=== PATIENT | female | born 2000 | race Caucasian/White ===

== ENCOUNTER 2024-07-17 11:27 | Outpatient (AMB) | payer OTHER, MEDICAID, SELFPAY ==
--- NOTE | 2024-07-17 11:35 | A.OFFPC_ITS ---
Vital Signs 07/17/24 11:40 Height 5 ft 3.15 in Weight 316 lb BMI 55.7 BP 104/72 Blood Pressure Location Lt brachial Position Sitting Respiration 16 Pulse 84 Pulse Source Pulse Oximeter Pulse Oximetry (%) 97 Oxygen Delivery Method Room Air Intake Visit Reasons: Est. Care Intake Note: New patient visit Electrical Design Engineer Required: No Allergies No Known Allergies Allergy (Verified 07/17/24 11:38) Medication List - Last Reconciled 07/17/24 by Maggie Vasques PA-C No Known Home Meds Tobacco use date assessed: 07/17/24 Dental Screening Dental Screen Date: 07/17/24 Did you have a dental visit in the last 12 months?: Yes Did you have a dental problem in the last 6 months where you did not have access to dental care?: No Was dental information given to patient?: Patient has dentist HPI Est. Care HPI Details Patient is a 24-year-old female who presents today to establish care. She denies any acute concerns today. Pysch: She states that she has a history of anxiety and depression that waxes and wanes but is overall controlled with coping mechanisms in a good support system. SEROLOGIST: follows with [facility] Social History Housing: House (With mother) Patient Tobacco Use Status: Never used Tobacco e-Cigarette/Vaping Use: Never Used Second Hand Smoke Exposure: No service: No Current occupational status: employed Current occupation: Kitchen at [employer] Current occupational exposures/hazards: Yes (fire, ovens) Cognitive needs: No Hearing needs: No Vision needs: No Questionnaire PHQ-9 Over the last 2 weeks, how often have you been bothered by any of the following problems? 1. Little interest or pleasure in doing things: not at all 2. Feeling down, depressed, or hopeless: several days 3. Trouble falling or staying asleep, or sleeping too much: several days 4. Feeling tired or having little energy: several days 5. Poor appetite or overeating: not at all 6. Feeling bad about yourself - or that you are a failure or have let yourself or your family down: not at all 7. Trouble concentrating on things, such as reading the newspaper or watching television: several days 8. Moving or speaking so slowly that other people could have noticed. Or the opposite - being so fidgety or restless that you have been moving around a lot more than usual: several days 9. Thoughts that you would be better off or of hurting yourself in some way: not at all Total score: 5 Depression Screening Interpretation: Positive Depression Screening Follow-up: Existing condition and Declines treatment Depression Screening Done: Yes 84114 - PHQ-9 Billing: Yes Source: Developed by Drs. Tarun Bragg, Kylee Chowdhury, Chente Gagnon and colleagues, with an educational alan from [employer]. Thrive Questionnaire Date Thrive assessed: 07/16/24 I am a: Patient What is your living situation today?: I have a steady place to live Within the past 12 months, did the food you bought not last and you didn't have the money to get more?: Sometimes True Within the past 12 months, did you worry whether your food would run out before you got money to buy more?: Sometimes True Do you have trouble paying for medicines?: No Do you have trouble getting transportation to medical appointments?: No Do you have trouble paying your heating and electricity bill?: No Do you have trouble taking care of your child, family member or friend?: No Do you have trouble with day-to-day activities such as bathing, preparing meals, shopping, managing finances, etc.?: No Are you currently unemployed and looking for a job?: No Are you interested in more education?: Yes Please select the resources that you would like help with: None Currently or been in a relationship where the following occur: No concerns reported THRIVE Score: 2 AUDIT C Alcohol Use Questionnaire (AUDIT-C) 1. How often do you have a drink containing alcohol?: Never 2. How many drinks containing alcohol do you have on a typical day when you are drinking?: 1 or 2 3. How often do you have six or more drinks on one occasion?: Never Total Score: 0 DONALDO-7 AMB Questionnaire DONALDO-7 Date DONALDO - 7 assessed: 07/17/24 Feeling nervous, anxious, or on edge: 1 = Several days Not being able to stop or control worryin = Several days Worrying too much about different things: 1 = Several days Trouble relaxin = Several days Being so restless that it is hard to sit still: 1 = Several days Becoming easily annoyed or irritable: 1 = Several days Feeling afraid as if something awful might happen: 1 = Several days Total DONALDO-7 score (0-4 normal; 5-9 mild; 10-14 moderate; 15-21 severe): 7 Source: Developed by Drs. Tarun Bragg, Kylee Chowdhury, Chente Gagnon and colleagues, with an educational alan from [employer]. DONALDO-7 Assessment Billing DONALDO-7 Assessment Tool: DONALDO-7 Assessment 58044 Physical exam (Primary Care) Vital Signs: Last Vital Signs Pulse 84 07/17/24 11:40 Resp 16 07/17/24 11:40 BP 104/72 07/17/24 11:40 Pulse Ox 97 07/17/24 11:40 Oxygen Delivery Method Room Air 07/17/24 11:40 BMI result Body Mass Index 55.7 Tobacco/Smoking Status: Tobacco use Status Tobacco use date assessed 07/17/24 07/17/24 11:40 Patient Tobacco Use Status Never used Tobacco 07/17/24 11:40 e-Cigarette/Vaping Use Never Used 07/17/24 11:40 PHQ-9: PHQ-9 Score PHQ-9: Total score 5 07/17/24 11:40 Depression Screening Interpretation: Positive Depression Screening Follow-up: Existing condition and Declines treatment Thrive Assessment: Date of Thrive Assessment Date Thrive assessed 07/16/24 07/17/24 11:36 Currently or been in a relationship where the following occur: No concerns reported Const Orientation/consciousness: patient oriented x3 HENMT Ears: hearing grossly normal bilaterally Neck Thyroid: Thyroid normal Lymphatic: no lymphadenopathy noted Resp Auscultation: clear to auscultation bilaterally Cardio Rate: regular rate Rhythm: regular rhythm Heart sounds: S1 normal heart sound present and S2 normal heart sound present GI Inspection: Yes normal to inspection Palpation (GI): Soft to palpation and Other GI palpation findings present (nontender, no cva tenderness) Auscultation: normoactive bowel sounds Rectal Exam - Female: deferred Skin General skin exam: no rashes or lesions noted Neuro General: patient oriented x3, gait normal and no focal motor deficits Coding Level of Care Code New Pt Level 3 (60270) Complex EM visit Add On G2211 Diagnoses Anxiety with depression F41.8 Vitamin D deficiency E55.9 Additional Codes DONALDO-7 Assessment Billing - DONALDO-7 Assessment Tool: DONALDO-7 Assessment 94099 ([id number]) PHQ-9 - 84571 - PHQ-9 Billing: Yes ([id number]) Assessment & Plan Assessment & Plan (1) Anxiety with depression: Code(s): F41.8 - Other specified anxiety disorders Category: Medical Plan: Well-controlled (2) Vitamin D deficiency: Code(s): E55.9 - Vitamin D deficiency, unspecified Category: Medical Plan: Labs ordered. We will follow up pending test results. Orders: Orders Complete Blood Count Auto Diff Today E55.9 - Vitamin D deficiency, unspecified, F41.8 - Other specified anxiety disorders, Z00.00 - Encounter for general adult medical examination without abnormal findings Comprehensive [place]. Panel Fast Today E55.9 - Vitamin D deficiency, unspecified, F41.8 - Other specified anxiety disorders, Z00.00 - Encounter for general adult medical examination without abnormal findings TSH reflex Free T4 Today E55.9 - Vitamin D deficiency, unspecified, F41.8 - Other specified anxiety disorders, Z00.00 - Encounter for general adult medical examination without abnormal findings UA CC w/rflx Micro + Cult Today E55.9 - Vitamin D deficiency, unspecified, F41.8 - Other specified anxiety disorders, Z00.00 - Encounter for general adult medical examination without abnormal findings, Z13.220 - Encounter for screening for lipoid disorders IRON PROFILE Today E55.9 - Vitamin D deficiency, unspecified, F41.8 - Other specified anxiety disorders, Z00.00 - Encounter for general adult medical examination without abnormal findings Vitamin D 25-OH Total Today E55.9 - Vitamin D deficiency, unspecified, F41.8 - Other specified anxiety disorders, Z00.00 - Encounter for general adult medical examination without abnormal findings Hemoglobin A1c Today E55.9 - Vitamin D deficiency, unspecified, F41.8 - Other specified anxiety disorders, R73.01 - Impaired fasting glucose, Z00.00 - Encounter for general adult medical examination without abnormal findings Lipid Panel Today E55.9 - Vitamin D deficiency, unspecified, F41.8 - Other specified anxiety disorders, Z00.00 - Encounter for general adult medical examination without abnormal findings Vitamin B12 and Folate Today E55.9 - Vitamin D deficiency, unspecified, F41.8 - Other specified anxiety disorders, Z00.00 - Encounter for general adult medical examination without abnormal findings Magnesium Today E55.9 - Vitamin D deficiency, unspecified, F41.8 - Other specified anxiety disorders, Z00.00 - Encounter for general adult medical examination without abnormal findings
[2024-07-17 11:40] VITALS: BP 104/72; PULSE 84; RESP 16; O2SAT 97; BMI 55.7
--- OUTSIDE RECORDS SUMMARY | 2024-07-17 14:18 | XMS_ITS | Encounter Summary ---
Author Organization [facility] Address [address] [place] [address] Phone Care Team Providers Care Data Control Clerk Supervisor Name Role Phone Alistair Singh MD Primary Care Provider [phone] Encounter Details Date Type Department Care Team ([facility] st Contact Info) Description 11/16/2016 Conversion Encounter [facility] [address] [place] [address] Social History Tobacco Use Types Packs/Day Years Used Date Smoking Tobacco: Never Comments:Never smoker Comments Unknown Sex and Gender Information Value Date Recorded Sex Assigned at Female 02/24/2019 10:00 AM EST Legal Sex Female 5:10 PM EDT Gender Identity Female 02/24/2019 10:00 AM EST Sexual Orientation Straight 02/24/2019 10 :00 AM EST documented as of this encounter Plan of Treatment Not on file documented as of this encounter Visit Diagnoses Not on filedocumented in this encounter Care Teams Data Control Clerk Supervisor Relationship Specialty Start Date End Date Alistair Singh MD [address] [place] [address] PCP - General 11/10/16 07/18/22 documented as of this encounter
--- OUTSIDE RECORDS SUMMARY | 2024-07-17 14:18 | XMS_ITS | Encounter Summary ---
Author Organization [facility] Address [address] [place] [address] Phone Care Team Providers Care Abseiling Instructor Name Role Phone Alistair Singh MD Primary Care Provider [phone] Encounter Details Date Type Department Care Team (Late st Contact Info) Description 07/27/2014 Documentation [facility] [place] [address] [place], [place] [id number] Family Medicine, Physician [address] [place], [place] [id number] Social History Tobacco Use Types Packs/Day Years Used Date Smoking Tobacco: Never Assessed Comments Unknown Sex and Gender Information Value [...] on filedocumented in this encounter Care Teams Abseiling Instructor Relationship Specialty Start Date End Date Alistair Singh MD [address] [place] [address] [place] [address] PCP - General 11/10/16 07/18/22 documented as of this encounter
--- OUTSIDE RECORDS SUMMARY | 2024-07-17 14:18 | XMS_ITS | Clinical Summary ---
Author Organization [facility] Address [address] [place] [address] Phone Care Team Providers Care Tool Room Supervisor Name Role Phone Unavailable Primary Care Provider Unavailabl e Allergies Active Allergy Reactions Criticality Noted Date Comments Latex Rash Medium 01/28/2021 Per pt. Tomato Rash High 01/28/2021 Per pt. Medications D3 Super Strength 50 MCG (1999 UT) capsule Take 1 capsule by mouth once daily. 08/14/2020 Active meloxicam 7.5 MG tablet Take 7.5 mg by mouth 2 (two) times a day as needed. for pain 01/17/2021 Active Active Problems Problem Noted Date Diagnosed Date Current moderate episode of major depressive disorder without prior episode 04/01/2020 Anxiety disorder 04/01/2020 Developmental delay 11/16/2015 Obesity, morbid (more than 1 00 lbs over ideal weight or BMI > 40) 10/14/2009 Immunizations Immunization Administration Dates Next Due DTaP 5 07/22/2003, 3,1999,07/19,1999 HPV, Quadrivalent 12/05/2011,03/14/2011,11/01/19 11 Hep A, ped/adol 11/10/2013,10/31/2010 Hep B, ped/adol 1999,1999,1999 Hib (HbOC) 08/14/2000, 0,1999,05/10 IPV 04/21/2003, 0,1999,06/15 Influenza, injectable, quadrivalent 01/03/2016 Influenza, injectable, quadr ivalent, preservative free 01/28/2021,03/09/2020,02/24/2019,02/14 Influenza, intranasal, trivalent 12/05/2011,03/02 MMR 04/21/2003,04/25/2000 Meningococcal Conj (Menactra) MCV4P 11/16/2015,0 10/31/2010 Td (adult) (Tenivac), 5 Lf t etanus toxoid, PF, adsorbed 01/03/2016 Tdap 10/31/2010 Varicella 10/28/2007,04/25/2000 Family History Medical History Relation Name Comments ADD / ADHD Brother 1 nils Constipation Brother 1 nils Other Brother 1 nils Autism Brother 2 jose alberto Arthritis Father nils Diabetes Father nils Achalasia Mother dex Obesity Mother dex Thyroid disease Mother dex ADD / ADHD Other Asthma Other Breast cancer Other Diabetes Other Migraines Other Obesity Other Relation Name Status Comments Brother 1 nils Alive Brother: leucom alasia , hyperanemia , gastrochisis Brother 2 jose alberto Alive Father nils Alive Father: Alive a nd well Mother dex Alive Mother: analasi a Other Family history of Diabetes mellitus, Family history of Autism, Family history of Cancer, breast, Family history of ADD/ADHD, Family history of Asthma, Family history of Migraines, Family history of *Dental caries, Family history of Obesity Social History Tobacco Use Types Packs/Day Years Used Date Smoking Tobacco: Never Smokeless Tobacco: Never Comments:Never smoker Alcohol Use Standard Drinks/Week Comments No 0 (1 standard drink = 0.6 oz pur e alcohol) Hunger/Food Answer Date Recorded In the last 12 months, did y ou or your family ever eat less than you felt you should because there wasn't enough money for food? No 03/09/2020 Stable Housing Answer Date Recorded Are you worried that in the next 2 months you may not have stable housing? No 03/09/2020 Transportation Concerns Answer Date Rec orded In the last 12 months, have you or your family ever had to go without healthcare because you didn't have a way to get there? No 03/09/2020 Hazards in Home Answer Date Recorded Think about the place you li ve. Do you have problems with any of the following? Pests (mice or roaches), mold, no/not working smoke detectors, water leaks, no window guards. No 2019 Financing Utilities Answer Date Recorde d In the last 12 months, has t he electric, gas, oil, or water company threatened to shut off your services in your home? No 03/09/2020 Safety at Home Answer Date Recorded Are you or your family worried about feeling saf e in your home? No 03/09/2020 Outside Support Answer Date Recorded Do you feel that you need mo re support from other people or programs to help you care for yourself or your family? No 03/09/2020 Understanding Health Concerns Answer Da te Recorded Do you need help understandi ng your or your child's healthcare needs (diagnosis, medications, plan, etc.)? No 03/09/2020 Financing Health Concerns Answer Date R ecorded In the last 12 months, was t here a time when your child needed to see a doctor or get medications or supplies but could not because of cost? No 03/09/2020 Missing School or Work Answer Date Logan rded Did you or your child miss s chool or work because of a health problem that could have been avoided? No 03/09/2020 Comments No Sex and Gender Information Value Date Recorded Sex Assigned at Female 02/24/2019 10:00 AM EST Legal Sex Female 5:10 PM EDT Gender Identity Female 02/24/2019 10:00 AM EST Sexual Orientation Straight 02/24/2019 10 :00 AM EST Last Filed Vital Signs Vital Sign Reading Time Taken Comments Blood Pressure 115/71 01/28/2021 2:45 PM EDT Pulse 84 01/28/2021 2:45 PM EDT Temperature 36.6 ??C (97.8 ??F) 01/28/2021 2:45 PM ED T Respiratory Rate - - Oxygen Saturation - - Inhaled Oxygen Concentration - - Weight 129 kg (284 lb 2 oz) 01/28/2021 2:45 PM E DT Height 160 cm (5' 3 ) 01/28/2021 2:45 PM EDT Body Mass Index 50.33 01/28/2021 2:45 PM EDT Plan of Treatment Health Maintenance Due Date Last Done Comments Influenza Vaccines (#1) 2023 01/29/20 21, 03/09/2020, 02/24/2019, Additional history exists COVID-19 Vaccine ( season) 2023 02/02/2021, 01/12/2021 DTaP,Tdap,and Td Vaccines (8 - Td or Tdap) 01/02/2026 01/03/2016, 10/31/2010, 07/22/2003, Additional history exists Hepatitis B Vaccines Completed 1999, 1999, 1999 HIB Vaccines Completed 08/14/2000, 09/30, 1999, Additional history exists IPV Vaccines Completed 04/21/2003, 09/30, 1999, Additional history exists MMR Vaccines Completed 04/21/2003, 04/25/2000 Varicella Vaccines Completed 10/28/2007, 04/25/2000 HPV Vaccines Completed 12/05/2011, 03/02, 10/31/2010 Hepatitis A Vaccines Completed 11/10/2013, 11/01/19 11 Meningococcal Vaccine Completed 11/16/2015, 011 Men B Vaccine Aged Out No longer elig ible based on patient's age to complete this topic Pneumococcal Vaccine Aged Out No long er eligible based on patient's age to complete this topic Procedures * Due to [place] Augmate law, this organization might not be sharing sensitive test results. Procedure Name Priority Date/Time Associated Diagnosis Comments CHLAMYDIA AND GONORRHEA, AMPLIFIED Routine 03/22/2020 10:14 AM EST Screening examination for bacterial and spirochetal disease from Last 3 Months or Most Recently Relevant to Health Maintenance Results * Due to [place] Augmate law, this organization might not be sharing sensitive test results. * Chlamydia and Gonorrhoea, Amplified (03/22/2020 10:14 AM EST) Chlamydia Trachomatis, DNA Probe NEGATIVE (NEG) [facility] Comment: No Chlamydia Trachomatis RNA detected in this patient's sample ? (REFERENCE RANGE/NORMAL VALUE: NOT DETECTED) ? Note: This test uses clinical research director- mediated amplification method to detect rRNA from C. Trachomatis URINE GC AMP PROBE NEGATIVE (NEG) [facility] Comment: No Neisseria Gonorrhoeae RNA detected in this patient's sample ? (REFERENCE RANGE/NORMAL VALUE: NOT DETECTED) ? NOTE: This test uses clinical research director-mediated amplification method to detect rRNA from N.Gonorrhoeae. A negative result does not preclude infection. In the case of a negative urine result, testing of an endocervical(female) or urethral (male) specimen is recommended if there is high clinical suspicion of infection. Due to very high sensitivity of Nucleic Acid Amplification Test, false positive results may occur. Therefore, specimen handling is extremely important. In patients in whom the disease is unlikely, additional sample for testing should be considered after an initial positive result. The performance characteristics of this test have not been evaluated in children. The Aptima Combo2 assay is not intended for the evaluation of suspected sexual abuse or for other medico-legal indications. The ordering provider should assess if the patient had consensual sex without risk of sexual abuse. Consult the [facility] if needed. Contact phone number . Therapeutic failure or success cannot be determined with the Aptima Combo2 assay since nucleic acid may persist following appropriate antimicrobial therapy. The Centers for Disease Control and Prevention (CDC) recommends confirmatory retesting using culture or a different nucleic acid amplification test when positive results occur, if indicated. Testing performed or reported by [facility], a Service of [facility], [facility] [address], [place] [address] Michel Eddy MD, Electrician Radio Urine 03/22/2020 10:1 4 AM EST 03/22/2020 10:41 AM EST Alistair Singh MD LAB MICROBIOLOGY - GENERAL ORDER KAYE Final Result [facility] from Last 3 Months or Most Recently Relevant to Health Maintenance
--- OUTSIDE RECORDS SUMMARY | 2024-07-17 14:18 | XMS_ITS | Encounter Summary ---
Author Organization [facility] Address [address] [place] [address] Phone Care Team Providers Care Brokerage Purchase And Sale Clerk Name Role Phone Alistair Singh MD Primary Care Provider [phone] Encounter Details Date Type Department Care Team (Late st Contact Info) Description 08/14/2009 Documentation [facility] [place] [address] [place] [address] Family Medicine, Physician [address], [place] [address] Social History Tobacco Use Types Packs/Day Years [...] on filedocumented in this encounter Care Teams Brokerage Purchase And Sale Clerk Relationship Specialty Start Date End Date Alistair Singh MD [address] [place] [address] [place] [address] PCP - General 11/10/16 07/18/22 documented as of this encounter
--- OUTSIDE RECORDS SUMMARY | 2024-07-17 14:18 | XMS_ITS | Encounter Summary ---
Author Organization [facility] Address [address] [place] [address] Phone Care Team Providers Care Buyer Planner Name Role Phone Alistair Singh MD Primary Care Provider Encounter Details Date Type Department Care Team (Late st Contact Info) Description 08/09/2016 [place]ation [facility] [place] [address] [place], [place] [id number] Family Medicine, Physician [address] [place] [address] Social History Tobacco Use Types Packs/Day Years [...] on filedocumented in this encounter Care Teams Buyer Planner Relationship Specialty Start Date End Date Alistair Singh MD [address] [place] [address] [place] [address] PCP - General 11/10/16 07/18/22 documented as of this encounter
== END 2024-07-17 11:54 | disposition home or self-care (01) ==
LOC: HO.HMCFM 11:28
PROVIDERS: PCP Physician Assistant; Visit Provider Physician Assistant
DX: F41.8 Other specified anxiety disorders (principal); E55.9 Vitamin D deficiency, unspecified